=== PATIENT | female | born 1975 ===

== ENCOUNTER 2018-11-06 13:54 | Outpatient (CLI) | payer OTHER ==
[~2018-11-06] VITALS: Ht 154.9 cm; Wt 56.7 kg
== END 2018-11-06 14:15 | disposition home or self-care (01) ==
LOC: OFIC 805 13:54
DX: H66.93 Otitis media, unspecified, bilateral (principal); H81.90 Unspecified disorder of vestibular function, unspecified ear; H92.03 Otalgia, bilateral

== ENCOUNTER 2018-11-20 14:22 | Outpatient (CLI) | payer OTHER ==
[~2018-11-20] VITALS: Ht 152.4 cm; Wt 56.7 kg
== END 2018-11-20 14:40 | disposition home or self-care (01) ==
LOC: OFIC 805 14:22
DX: H66.93 Otitis media, unspecified, bilateral (principal); H81.90 Unspecified disorder of vestibular function, unspecified ear; H92.03 Otalgia, bilateral